=== PATIENT | female | born 1985 | race Caucasian/White ===

== ENCOUNTER 2019-05-30 11:49 | Emergency (ER) | payer SELFPAY ==
[2019-05-30] MEDS ORDERED: Ibuprofen 800 MG TAB ONE (12:13)
== END 2019-05-30 12:20 | disposition home or self-care (01) ==
LOC: BURERS 11:49
DX: S70.02XA Contusion of left hip, initial encounter (principal); V89.2XXA Person injured in unspecified motor-vehicle accident, traffic, initial encounter
CPT/HCPCS: 99283